=== PATIENT | male | born 2000 | race Caucasian/White ===

== ENCOUNTER 2021-05-08 16:35 | Emergency (ER) | payer OTHER ==
[2021-05-08 17:07] LABS: RAPID STREP SCREEN Negative (Negative)
--- NOTE | 2021-05-08 17:59 | ED Physician Documentation ---
PD HPI URI - Stated complaint Stated Complaint: SETH,SOA,FATIGUE - Chief complaint Chief Complaint: Heent - History obtained from History obtained from: Patient - History of Present Illness Pain level max: 0 Pain level now: 0 Associated symptoms: Dry cough. No: Fever, Chills Contributing factors: Sick contact Improves by: Rest Worsened by: Activity, Breathing Recently seen: Not recently seen - Additional information Additional information: Patient is a 20-year-old male who presents to the emergency department with dry cough, weakness and fatigue for the past 24 hours. He is active [employer] and has been around other people that are ill. He states that his command told him to come here to find out how long he was going to be sick for. Has had his covid vaccinations Review of Systems Constitutional: denies: Fever, Chills Nose: reports: Rhinorrhea / runny nose, Congestion Throat: reports: Sore throat Respiratory: reports: Cough (dry) GI: denies: Nausea, Vomiting, Diarrhea Skin: denies: Rash Musculoskeletal: denies: Neck pain, Back pain Neurologic: denies: Headache PD PAST MEDICAL HISTORY - Past Medical History Past Medical History: No Cardiovascular: None Respiratory: None Neuro: None Endocrine/Autoimmune: None GI: None : None HEENT: None Psych: None Musculoskeletal: None Derm: None - Past Surgical History Past Surgical History: No - Present Medications Home Medications: Ambulatory Orders Medication Instructions Recorded Confirmed No Known Home Medications 05/08/21 05/08/21 - Allergies Allergies/Adverse Reactions: Allergies Allergy/AdvReac Type Severity Reaction Status Date / Time No Known Drug Allergies Allergy Verified 05/08/21 16:45 - Social History Does the pt smoke?: No Smoking Status: Never smoker Does the pt drink ETOH?: No Does the pt have substance abuse?: No - Immunizations Immunizations are current?: Yes PD ED PE NORMAL - Vitals Vital signs reviewed: Yes - General General: Alert and oriented X 3, No acute distress - HEENT HEENT: PERRL, Ears normal, Moist mucous membranes, Pharynx benign - Neck Neck: Supple, no meningeal sign - Cardiac Cardiac: RRR, Strong equal pulses - Respiratory Respiratory: No respiratory distress, Clear bilaterally - Abdomen Abdomen: Soft, Non tender, Non distended - Derm Derm: Warm and dry, No rash - Neuro Neuro: Alert and oriented X 3 - Psych Psych: Normal mood, Normal affect Results - Vitals Vitals: Vital Signs - 24 hr 05/08/21 05/08/21 16:41 18:39 Temperature 37.1 C 36.6 C Heart Rate 104 H 87 Respiratory 16 18 Rate Blood Pressure 136/78 H 140/78 H O2 Saturation 97 100 Oxygen O2 Source Room air - Labs Labs: Laboratory Tests 05/08/21 16:49 Group A Strep Rapid Negative - Rads (name of study) Chest x-ray Radiology: Final report received, EMP read contemporaneously, See rad report (No acute abnormality) PD MEDICAL DECISION MAKING - ED course Complexity details: reviewed results, re-evaluated patient, considered differential, d/w patient ED course: 20-year-old male with what appears to be a viral upper respiratory infection. We will continue supportive care at home and have him follow-up with his doctor for further care. Patient counseled regarding signs and symptoms for which I believe and urgent re-evaluation would be necessary. Patient with good understanding of and agreement to plan and is comfortable going home at this time This document was made in part using voice recognition software. While efforts are made to proofread this document, sound alike and grammatical errors may occur. Departure - Departure Disposition: 01 Home, Self Care Clinical Impression: Viral URI Condition: Good Instructions: ED Viral Syndrome Follow-Up: COLBY Payne [Provider Group] - Within 1 week Comments: Follow-up with your doctor for further care. Go home and rest. Return if you worsen. Your x-ray does not show any acute abnormalities today. Forms: Activity restrictions Discharge Date/Time: 05/08/21 18:40
--- NOTE | 2021-05-08 18:17 | XRAY Report ---
PROCEDURE: Chest 2 View X-Ray INDICATIONS: cough TECHNIQUE: 2 view(s) of the chest. COMPARISON: None. FINDINGS: Surgical changes and devices: None. Lungs and pleura: No pleural effusions or pneumothorax. Lungs are clear. Mediastinum: Mediastinal contours are normal. Heart size is normal. Bones and chest wall: No suspicious bony abnormalities. Soft tissues appear unremarkable. IMPRESSION: No acute cardiopulmonary abnormality. Reviewed by: Leoncio Chino MD on 05/08/2021 6:15 PM PDT Approved by: Leoncio Chino MD on 05/08/2021 6:15 PM PDT Station ID: [id number]
[2021-05-08 18:39] VITALS: BP 140/78
== END 2021-05-08 18:40 | disposition home or self-care (01) ==
LOC: ED 16:35
DX: U07.1 COVID-19 (principal); J06.9 Acute upper respiratory infection, unspecified
CPT/HCPCS: 87070; 87430; 99284

== ENCOUNTER 2021-09-01 08:04 | Emergency (ER) | payer OTHER ==
[2021-09-01 08:15] VITALS: BP 170/80
--- NOTE | 2021-09-01 08:29 | ED Physician Documentation ---
PD HPI LOWER EXT INJURY - Stated complaint Stated Complaint: RT KNEE INJURY - Chief complaint Chief Complaint: Trauma Ext - History obtained from History obtained from: Family - History of Present Illness PD HPI LOW EXT INJURY LOCATION: Right, Knee Type of injury: Fall, Twist Where injury occurred: [place], [place] Timing - onset: Yesterday Timing - duration: Days (1) Timing - details: Still present, Intermittant Improved by: Rest, Immobilization Worsened by: Moving, Palpating Associated symptoms: Swelling. No: Weakness, Numbness, Tingling, Discolored Contributing factors: No: Anticoagulated Similar symptoms before: Has not had sx before Recently seen: Not recently seen - Additional information Additional information: Previous well 21-year-old male was playing flag football yesterday with his [employer] mates and he went to catch the ball when he came down he came down on his right knee. He felt his patella dislocate and now he has pain on the medial aspect of his right knee. He has pain with weightbearing. Review of Systems Constitutional: denies: Fever Ears: denies: Ear pain Nose: denies: Congestion Throat: denies: Sore throat Respiratory: denies: Cough GI: denies: Vomiting, Diarrhea Musculoskeletal: reports: Extremity pain, Joint pain, Pain with weight bearing. denies: Neck pain, Back pain Neurologic: denies: Generalized weakness, Focal weakness, Numbness PD PAST MEDICAL HISTORY - Past Medical History Cardiovascular: None Respiratory: None Neuro: None Endocrine/Autoimmune: None GI: None : None HEENT: None Psych: None Musculoskeletal: None Derm: None - Past Surgical History Past Surgical History: No - Present Medications Home Medications: Ambulatory Orders Medication Instructions Recorded Confirmed No Known Home Medications 05/08/21 09/01/21 - Allergies Allergies/Adverse Reactions: Allergies Allergy/AdvReac Type Severity Reaction Status Date / Time No Known Drug Allergies Allergy Verified 09/01/21 08:14 - Social History Does the pt smoke?: No Smoking Status: Never smoker Does the pt drink ETOH?: No Does the pt have substance abuse?: No - Immunizations Immunizations are current?: Yes PD ED PE NORMAL - Vitals Vital signs reviewed: Yes (hypertensive ) - General General: Alert and oriented X 3, No acute distress, Well developed/nourished - HEENT HEENT: Atraumatic, PERRL, EOMI - Respiratory Respiratory: No respiratory distress - Derm Derm: Normal color, Warm and dry, No rash - Extremities Extremities: No deformity, No edema, Other (Point tenderness to the medial joint line and the medial joint opens with valgus forces there is pain to the medial joint line with varus forces. Anterior cruciate mid and lateral collateral ligaments stable distal neurovascular intact full range of motion. 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 By history it sounds like he did dislocate his patella as well. An effusion is present on plain film but no fracture is observed and the patient is placed into a long-leg knee immobilizer. He is referred to orthopedics. Departure - Departure Disposition: 01 Home, Self Care Clinical Impression: Medial collateral ligament sprain of knee Qualifiers: Encounter type: initial encounter Laterality: right Qualified Code(s): S83.411A - Sprain of medial collateral ligament of right knee, initial encounter Condition: Stable Instructions: ED Sprain Knee Collateral Ligaments Follow-Up: WELLINGTON CROWLEY DO [Primary Care Provider] - Damon Cota MD [Provider Admit Priv/Credential] -
--- NOTE | 2021-09-01 09:13 | XRAY Report ---
PROCEDURE: Knee 4 View RT INDICATIONS: medial joint line pain after fall football TECHNIQUE: 4 views of the right knee(s) were acquired. COMPARISON: None. FINDINGS: Bones: No fractures or dislocations. No suspicious bony lesions. Soft tissues: Mild to moderate joint effusion. No suspicious soft tissue calcifications. IMPRESSION: Mild to moderate effusion. No visualized acute fracture or dislocation. However, occult injury cannot be excluded. Recommend short interval imaging follow-up in 7-10 days as clinically selena cated for additional evaluation. Reviewed by: Charleen Rangel MD on 09/01/2021 9:11 AM PDT Approved by: Charleen Rangel MD on 09/01/2021 9:11 AM PDT Station ID: [id number]
== END 2021-09-01 09:41 | disposition home or self-care (01) ==
LOC: ED 08:04
DX: S83.411A Sprain of medial collateral ligament of right knee, initial encounter (principal); W18.39XA Other fall on same level, initial encounter; Y93.62 Activity, american flag or touch football; Y92.830 Public park as the place of occurrence of the external cause
CPT/HCPCS: 99282; 99283

== ENCOUNTER 2024-02-24 08:01 | Day surgery (SDC) | payer OTHER ==
--- NOTE | 2024-02-24 08:14 | ED Physician Documentation ---
PD HPI ABD PAIN - Stated complaint Stated Complaint: ABD PX - Additional information Additional information: 23-year-old otherwise healthy male sent over from the walk-in clinic to evaluate for appendicitis. He had a little bit of anorexia and vague GI upset day crampy diffuse pain yesterday and then the developed localizing right lower quadrant pain overnight. Presented to the walk-in clinic for evaluation and they sent him here because of concern for appendicitis. No bowel movement in the past 24 hours. He tried some [id number] laxatives. Nauseous and vomiting. Positive anorexia. Negative surgical history otherwise healthy 23-year-old Review of Systems GI: reports: Abdominal Pain, Nausea, Vomiting PD PAST MEDICAL HISTORY - Past Medical History Cardiovascular: None Respiratory: None Neuro: None Endocrine/Autoimmune: None GI: None : None HEENT: None Psych: None Musculoskeletal: None Derm: None - Past Surgical History Past Surgical History: No - Present Medications Home Medications: Ambulatory Orders Medication Instructions Recorded Confirmed No Known Home Medications 05/08/21 02/24/24 - Allergies Allergies/Adverse Reactions: Allergies Allergy/AdvReac Type Severity Reaction Status Date / Time No Known Drug Allergies Allergy Verified 02/24/24 08:12 - Social History Does the pt smoke?: No Smoking Status: Never smoker Does the pt drink ETOH?: No Does the pt have substance abuse?: No - Immunizations Immunizations are current?: Yes PD ED PE NORMAL - Vitals Vital signs reviewed: Yes - General General: Alert and oriented X 3, No acute distress - Cardiac Cardiac: RRR, No murmur - Respiratory Respiratory: No respiratory distress - Abdomen Abdomen: Normal bowel sounds, Other (Right lower quadrant tenderness and guarding at McBurney's point.No hernias) Results - Vitals Vitals: Vital Signs - 24 hr 02/24/24 08:12 Temperature 37.3 C Heart Rate 106 H Respiratory 18 Rate Blood Pressure 163/88 H O2 Saturation 99 Oxygen O2 Source Room air - Labs Labs: Laboratory Tests 02/24/24 02/24/24 08:30 08:30 WBC 18.5 H RBC 5.95 Hgb 17.3 Hct 50.6 MCV 85.0 MCH 29.1 MCHC 34.2 RDW 11.9 L Plt Count 257 MPV 9.2 Neut # (Auto) 15.3 H Lymph # (Auto) 1.7 [place] # (Auto) 1.4 H Eos # (Auto) 0.0 Baso # (Auto) 0.0 Absolute Nucleated RBC 0.00 Nucleated RBC % 0.0 Sodium 136 Potassium 3.7 Chloride 100 L Carbon Dioxide 27 Anion Gap 9.0 BUN 8 Creatinine 0.9 Estimated GFR (MDRD) 104 Glucose 114 H Calcium 10.3 Total Bilirubin 1.4 H AST 18 ALT 28 Alkaline Phosphatase 50 Total Protein 7.6 Albumin 5.0 Globulin 2.6 Albumin/Globulin Ratio 1.9 - Rads (name of study) CT abd pelvis- Relevant Findings:: Final report received (acute appendicitis, apendicolith, no abscess), EMP independent interpretation of test (thick appendix) PD Medical Decision Making - ED course Complexity details: reviewed results, re-evaluated patient, considered differential (Appendicitis most likely. Will check CT scan and labs to evaluate other causes. Does not present like a kidney stone will check urine), d/w mergers and acquisitions consultant ED course: Gave IV fluids check labs he has a white count of 18,000. CT scan confirms cli nical suspicion for appendicitis. Discussed with Dr. Zeng from surgery she was here in the emergency department seeing the patient we will give IV Zosyn in anticipation of the OR. He will be going to same-day surgery for appendectomy. - Consults Consults: Discussed case with (Dr. Zeng- surgery. will see in ED, take to OR) Departure - Departure Disposition: ED Transfer to [facility] Clinical Impression: Appendicitis Forms: PCP List
[2024-02-24] MEDS: SODIUM CHLORIDE 0.9% 1,000 ML IV STA ×2 (08:34→11:26)
[2024-02-24 08:40] LABS: BASOPHILS % (AUTO) 0.2 %; EOSINOPHILS % (AUTO) 0.1 %; HCT - HEMATOCRIT 50.6 % (42.0-52.0); HGB - HEMOGLOBIN 17.3 g/dL (14.0-18.0); LYMPHOCYTES # (AUTO) 1.7 10^3/uL (1.5-3.5); LYMPHOCYTES % (AUTO) 9.3 %; MEAN CORPUSCULAR HEMOGLOBIN 29.1 pg (27.0-31.0); MEAN CORPUSCULAR HGB CONC 34.2 g/dL (32.0-36.0); MEAN PLATELET VOLUME 9.2 fL (7.4-11.4); MONOCYTES # (AUTO) 1.4 10^3/uL (0.0-1.0); MONOCYTES % (AUTO) 7.6 %; NEUTROPHILS # (AUTO) 15.3 10^3/uL (1.5-6.6); NEUTROPHILS % (AUTO) 82.4 %; PLT - PLATELET COUNT 257 10^3/uL (130-450); RED BLOOD COUNT 5.95 10^6/uL (4.70-6.10); RED CELL DISTRIBUTION WIDTH 11.9 % (12.0-15.0); WHITE BLOOD COUNT 18.5 x10^3/uL (4.8-10.8)
[2024-02-24] MEDS: HYDROmorphone 1 MG/ML CARPUJECT IVP STA (08:48)
[2024-02-24] MEDS: ONDANSETRON 4 MG/2 ML VIAL IVP STA (08:48)
[2024-02-24 08:56] LABS: ALBUMIN/GLOBULIN RATIO 1.9 (1.0-2.2); BILIRUBIN,TOTAL 1.4 mg/dL (0.2-1.0); CALCIUM 10.3 mg/dL (8.5-10.3); CREATININE 0.9 mg/dL (0.6-1.3); POTASSIUM 3.7 mmol/L (3.5-4.5); TOTAL PROTEIN 7.6 g/dL (6.4-8.9)
[2024-02-24] MEDS ORDERED: iohexoL-300 100 ML VIAL ONE (09:04)
[2024-02-24] MEDS: iohexoL-300 100 ML VIAL IVP ONE (09:23)
--- NOTE | 2024-02-24 10:37 | CT Report ---
PROCEDURE: Abdomen/Pelvis W INDICATIONS: RLQ pain CONTRAST: Omnipaque 300 100ml TECHNIQUE: After the administration of intravenous contrast, a CT scan of the abdomen and pelvis was performed. Images were recorded and evaluated at appropriate window settings. Reformats: coronal and sagittal. F or radiation dose reduction, the following was used: automated exposure control, adjustment of mA and /or kV according to patient size. COMPARISON: None FINDINGS: Image quality: Diagnostic Lower chest: Lung bases appear unremarkable. Liver: Unremarkable Gallbladder and biliary system: Unremarkable, nondilated Pancreas: No ductal dilation Spleen: Nonenlarged Adrenals: No discrete nodule Kidneys: No solid mass or hydronephrosis Vessels and lymph nodes: The main portal vein is patent. No abdominal aortic aneurysm. No pathologic lymph nodes by size criteria. Bowel and peritoneum: No evidence of small bowel obstruction. Markedly dilated appendix with moderate surrounding stranding. There is an obstructing appendicolith at the neck measuring 2.4 x 1.4 cm. No abscess. Body wall: Unremarkable Pelvis: Bladder is unremarkable. The prostate not well evaluated on this study Bones: No acute or suspicious osseous finding. IMPRESSION: Acute appendicitis. There is a 2.4 x 1.4 cm obstructing appendicolith at the neck. Moderate surroundi ng inflammation. No drainable abscess. Other findings as above (Images were made available for radiologist review at 10:20 AM.) Reviewed by: Juventino Hoang MD on 02/24/2024 10:36 AM PDT Approved by: Juventino Hoang MD on 02/24/2024 10:36 AM PDT Station ID: [id number]
[2024-02-24] MEDS: PIPERACILLIN/TAZOBACTAM 4.5 GM in SODIUM CHLORIDE 0.9% MINIBAG 100 ML IV STA (11:26)
--- NOTE | 2024-02-24 11:36 | HISTORY & PHYSICAL EXAMINATION ---
HPI - Admitted From Admitted from: ED - History Obtained From History obtained from: Patient Exam limitations: No limitations - History of Present Illness HPI Comment/Other: 23yoM, otherwise healthy, with onset of abdominal pain nearly 48hrs ago. Initially generalized and has migrated to [facility]. Associated with nausea and emesis yesterday, though was able to keep down gatorade and saltines overnight. Denies fever, denies dysuria, denies diarrhea. Tried OTC tums/pepto for perceived indigestion with no improvement. No history of similar abdominal pain in the past. PMH/PSH - Past Medical History Cardiovascular: positive: None Respiratory: positive: None Neuro: positive: None Endocrine/Autoimmune: positive: None GI: positive: None : positive: None HEENT: positive: None Psych: positive: None Musculoskeletal: positive: None Derm: positive: None MRSA Hx?: No - Past Surgical History Other past surgical history: No PSH Social & Family Hx - Living Situation Living Arrangement: At home Living Situation: Alone - Social History Does the pt smoke?: No Smoking Status: Former smoker (Quit 1 yr ago) Does the pt drink ETOH?: No Does the pt have substance abuse?: No - POLST Patient has POLST: No - Family History Family History Comment/Other: noncontributory Meds/Allgy - Home Medications Home Medications: Ambulatory Orders Medication Instructions Recorded Confirmed No Known Home Medications 05/08/21 02/24/24 - Allergies Allergies/Adverse Reactions: Allergies Allergy/AdvReac Type Severity Reaction Status Date / Time No Known Drug Allergies Allergy Verified 02/24/24 08:12 Review of Systems - Gastrointestinal Gastrointestinal: reports: Abdominal pain, Nausea, Vomiting Exam - Vital Signs Reviewed Vital Signs: Yes Vital Signs: Vital Signs x48h Temp Pulse Resp BP Pulse Ox 02/24/24 08:12 37.3 C 106 H 18 163/88 H 99 - Physical Exam General Appearance: positive: No acute distress Eyes Bilateral: positive: Normal inspection, PERRL ENT: positive: ENT inspection nml, Pharynx nml, No signs of dehydration Neck: positive: Nml inspection, Thyroid nml, No JVD, Trachea midline Respiratory: positive: Chest non-tender, No respiratory distress, Breath sounds nml Cardiovascular: positive: Regular rate & rhythm, No murmur, No gallop Peripheral Pulses: positive: 2+ Abdomen: positive: Tenderness (Generalized ttp, worst in RLQ with focal rebound, positive rosvings), Rebound. negative: Guarding Skin: positive: Color nml, No rash, Warm, Dry Extremities: positive: Non-tender, Full ROM, Nml appearance Neurologic/Psychiatric: positive: Oriented x3, Mood/affect nml Results - Lab Results Lab results reviewed: Yes Fish Bones: 02/24/24 08:30 02/24/24 08:30 Other Lab Results: Lab Results x24hrs 02/24/24 02/24/24 Range/Units 08:30 08:30 WBC 18.5 H (4.8-10.8) x10^3/uL RBC 5.95 (4.70-6.10) 10^6/uL Hgb 17.3 (14.0-18.0) g/dL Hct 50.6 (42.0-52.0) % MCV 85.0 (80.0-94.0) fL MCH 29.1 (27.0-31.0) pg MCHC 34.2 (32.0-36.0) g/dL RDW 11.9 L (12.0-15.0) % Plt Count 257 (130-450) 10^3/uL MPV 9.2 (7.4-11.4) fL Neut # (Auto) 15.3 H (1.5-6.6) 10^3/uL Lymph # (Auto) 1.7 (1.5-3.5) 10^3/uL [place] # (Auto) 1.4 H (0.0-1.0) 10^3/uL Eos # (Auto) 0.0 (0.0-0.7) 10^3/uL Baso # (Auto) 0.0 (0.0-0.1) 10^3/uL Absolute Nucleated RBC 0.00 x10^3/uL Nucleated RBC % 0.0 /100WBC Sodium 136 (135-145) mmol/L Potassium 3.7 (3.5-4.5) mmol/L Chloride 100 L (101-111) mmol/L Carbon Dioxide 27 (21-32) mmol/L Anion Gap 9.0 (6-13) BUN 8 (6-20) mg/dL Creatinine 0.9 (0.6-1.3) mg/dL Estimated GFR (MDRD) 104 (>89) Glucose 114 H (74-104) mg/dL Calcium 10.3 (8.5-10.3) mg/dL Total Bilirubin 1.4 H (0.2-1.0) mg/dL AST 18 (10-42) IU/L ALT 28 (10-60) IU/L Alkaline Phosphatase 50 (42-121) IU/L Total Protein 7.6 (6.4-8.9) g/dL Albumin 5.0 (3.2-5.5) g/dL Globulin 2.6 (2.1-4.2) g/dL Albumin/Globulin Ratio 1.9 (1.0-2.2) - Diagnostic Imaging Results Diagnostic Imaging Results: positive: Final report reviewed Diagnostic Imaging Results Comments: CT abd/pel with IV contrast - 2cm appendicolith with significantly dilated appendix (nearly 2cm) with surrounding inflammation c/w acute appendicitis. Trace free fluid in the pelvis, no abscess Sepsis Event Note (H) - Evaluation Confirmed Source and Organism (if known) of Sepsis: appendicitis - Sepsis Criteria Sepsis Criteria: Recorded Heart Rate greater than 90 bpm, WBC count greater than 12,000 or less than 4000 Impression/Plan - Problem List Problem List: Acute appendicitis 23yoM presenting with history and exam c/w acute appendicitis. Patient is hypertensive to 160s with low grade tachycardia to 106, afebrile. Elevated WBC to [address] demonstrates significantly dilated appendix with large (2cm) appendicolith, surrounding inflammation but no e/o giovani perforation or abscess. Discussed nature of disease with patient, management options of surgery vs antibiotics, and that I do not feel antibiotics alone are a reasonable option given the size of lith and appendix. Discussed risks of laparoscopic appendectomy to include pain, bleeding, infection, bowel resection, open surgery, need for further procedures. He understands and agrees to proceed with surgery. - zosyn given in ED - 1L crystalloid given in ED - to OR for laparoscopic appendectomy - lives alone, anticipate overnight observation given patient lives alone (unless makes arrangement with friend to stay over with him) Echo Zeng DO FACS General Surgery
[2024-02-24] MEDS ORDERED: LIDOCAINE 1%-EPI 1:100000 20 ML MDV ONE (12:05)
[2024-02-24] MEDS ORDERED: BUPIVACAINE 0.25% PF 30 ML VIAL ONE (12:05)
[2024-02-24] MEDS ORDERED: ONDANSETRON 4 MG/2 ML VIAL IVP PRN ×2 (12:06→15:02)
[2024-02-24] MEDS ORDERED: NALOXONE 0.4 MG/ML VIAL IVP PRN (12:06)
[2024-02-24] MEDS ORDERED: ATROPINE ABBOJECT 1 MG/10 ML SYRINGE IVP PRN (12:06)
[2024-02-24] MEDS ORDERED: MORPHINE 2 MG/ML CARPUJECT IVP PRN (12:06)
[2024-02-24] MEDS ORDERED: ePHEDrine 50 MG/ML VIAL IVP PRN (12:06)
[2024-02-24] MEDS ORDERED: METOCLOPRAMIDE 10 MG/2 ML VIAL IVP PRN (12:06)
[2024-02-24] MEDS ORDERED: fentaNYL 100 MCG/2 ML VIAL IVP PRN (12:06)
[2024-02-24] MEDS ORDERED: HYDROmorphone 0.5 MG/0.5 ML SYRINGE IVP PRN (12:06)
--- NOTE | 2024-02-24 12:06 | ANESTHESIA ---
Pre-Anesthesia VS, & Labs - Diagnosis acute appendicitis - Procedure laparoscopic appendectomy Vital Signs: Temp Pulse Resp BP Pulse Ox O2 Flow Rate 37.3 C 76 16 142/84 H 98 02/24/24 08:12 02/24/24 10:16 02/24/24 10:16 02/24/24 10:16 02/24/24 10:16 Height: 6 ft 4 in Weight (kg): 108.862 kg Body Mass Index: 29.2 BMI Classification: Overweight - NPO >8 hours (n/v at 0600, dry heaves, none since) - Lab Results Current Lab Results: Laboratory Tests 02/24/24 08:30: Sodium 136, Potassium 3.7, Chloride 100 L, Carbon Dioxide 27, Anion Gap 9.0, BUN 8, Creatinine 0.9, Estimated GFR (MDRD) 104, Glucose 114 H, Calcium 10.3, Total Bilirubin 1.4 H, AST 18, ALT 28, Alkaline Phosphatase 50, Total Protein 7.6, Albumin 5.0, Globulin 2.6, Albumin/Globulin Ratio 1.9 02/24/24 08:30: WBC 18.5 H, RBC 5.95, Hgb 17.3, Hct 50.6, MCV 85.0, MCH 29.1, MCHC 34.2, RDW 11.9 L, Plt Count 257, MPV 9.2, Neut # (Auto) 15.3 H, Lymph # (Auto) 1.7, [place] # (Auto) 1.4 H, Eos # (Auto) 0.0, Baso # (Auto) 0.0, Absolute Nucleated RBC 0.00, Nucleated RBC % 0.0 Fish Bones: 02/24/24 08:30 02/24/24 08:30 Home Medications and Allergies No Known Home Medications 05/08/21 Allergies/Adverse Reactions: Allergies Allergy/AdvReac Type Severity Reaction Status Date / Time No Known Drug Allergies Allergy Verified 02/24/24 08:12 Anes History & Medical History - Anesthetic History Anesthesia Complications: reports: No previous complications Family history of Anesthesia Complications: Denies Family history of Malignant Hyperthermia: Denies - Medical History Cardiovascular: reports: None Pulmonary: reports: None Gastrointestinal: reports: None Urinary: reports: None Neuro: reports: None Musculoskeletal: reports: None Endocrine/Autoimmune: reports: None Blood Disorders: reports: None Skin: reports: None Smoking Status: Former smoker (Quit 1 yr ago) - Surgical History Other Past Surgical History: No PSH Exam General: Alert, Oriented x3, Cooperative Dental: WNL Mouth Openin Fingerbreadth Neck Mobility: Normal Mallampati classification: II Thyromental Distance: 4-6 cm Respiratory: Lungs clear, Normal breath sounds, No respiratory distress Cardiovascular: Regular rate Neurological: Normal speech Mental/Cognitive Status: Alert/Oriented X3, Normal for patient Cognitive Status: Within normal limits Plan Anesthesia Type: General Consent for Procedure(s) Verified and Reviewed: Yes Code Status: Attempt Resuscitation ASA classification: 2-Mild systemic disease Is this case an emergency?: Yes
[2024-02-24] MEDS: BUPIVACAINE 0.25% PF 30 ML VIAL SUBQ ONE ×2 (12:36)
[2024-02-24] MEDS: LIDOCAINE 1%-EPI 1:100000 20 ML MDV SUBQ ONE ×2 (12:36)
[2024-02-24] MEDS ORDERED: LIDOCAINE-MPF 2% 5 ML VIAL ONE (12:42)
[2024-02-24] MEDS ORDERED: KETOROLAC 30 MG/ML VIAL ONE (12:42)
[2024-02-24] MEDS ORDERED: ONDANSETRON 4 MG/2 ML VIAL ONE (12:42)
[2024-02-24] MEDS ORDERED: PROPOFOL 200 MG/20 ML VIAL IVP ONE (12:42)
[2024-02-24] MEDS ORDERED: DEXAMETHASONE 4 MG/ML VIAL ONE (12:42)
[2024-02-24] MEDS ORDERED: ROCURONIUM 50 MG/5 ML VIAL ONE (12:42)
[2024-02-24] MEDS ORDERED: MIDAZOLAM 2 MG/2 ML VIAL ONE (12:43)
[2024-02-24] MEDS ORDERED: SUGAMMADEX 200 MG/2 ML VIAL IVP ONE (12:43)
[2024-02-24] MEDS ORDERED: fentaNYL 100 MCG/2 ML VIAL ONE ×2 (12:43→13:45)
[2024-02-24] MEDS ORDERED: LACTATED RINGERS 1,000 ML IV SCH (13:00)
[2024-02-24] MEDS ORDERED: PHENYLEPHRINE HCL 0.5 MG/5 ML AMPULE ONE (13:37)
[2024-02-24] MEDS ORDERED: ACETAMINOPHEN 1,000 MG/100 ML 1,000 MG/100 ML BAG IV ONE (14:06)
[2024-02-24] MEDS: LACTATED RINGERS 1,000 ML IV ONE (14:56)
--- NOTE | 2024-02-24 14:57 | ANESTHESIA POST OP EVALUATION ---
Anesthesia Post Eval - Post Anesthesia Eval Vitals: Last Vital Signs Temp 36.8 C 02/24/24 12:00 Pulse 88 02/24/24 12:00 Resp 16 02/24/24 12:00 BP 140/80 H 02/24/24 12:00 Pulse Ox 98 02/24/24 12:00 O2 Flow Rate CV Function Including HR & BP: Stable Pain Control: Satisfactory Nausea & Vomiting: Negative Mental Status: Baseline Respiratory Status: Airway Patent Hydration Status: Satisfactory Anesthesia Complications: None
--- NOTE | 2024-02-24 14:58 | OPERATIVE REPORT ---
Operative Report - General Procedure Date: 02/24/24 Planned Procedure: laparoscopic appendectomy Pre-Op Diagnosis: acute appendicitis Procedure Performed: laparoscopic appendectomy Post Op Diagnosis: acute suppurative appendicitis - Procedure Note Primary Surgeon: Echo Zeng DO Anesthesia Provider: Madison Webster CRNA, Tea Nina CRNA Anesthesia Technique: General ET tube Pathology: appendix IV Fluids (mL): 1,500 Estimated Blood Loss (mL): 10 Urine Output (mL): 1,200 Indications: 23yoM with 48hrs of abdominal and H&P, labs and imaging consistent with acute nonperforated appendicitis. Findings: Acute suppurative appendicitis, purulent fluid in the RLQ and pelvis, necrotic appearing appendix with large fecalith at base Complications: none - Other Other Information/Narrative: The patient was brought to the operating room with universal protocol observed throughout. He was placed supine on the operating room table with the left arm tucked. A Escobedo was placed. General anesthesia with endotracheal tube was induced by the anesthesia service. A timeout was performed with all members of the team being in agreement. Local anesthetic of 1% lidocaine with epinephrine mixed with Marcaine plain was injected into the infraumbilical skin. A transverse skin incision was made sharply. Blunt dissection down to the level of the fascia was performed. The umbilical stalk was elevated and the fascia was incised sharply in a vertical orientation and the peritoneal cavity was entered bluntly with a Tete clamp. A 12 mm balloon trocar was placed. The abdomen was insufflated with CO2 gas to a pressure of 15 mmHg which the patient tolerated well. The laparoscope was inserted and visual inspection revealed no evidence of injury upon entry. Two additional 5mm trocars were placed under direct visualization: one in the left lower quadrant, one in the suprapubic position. Graspers were introduced into the abdomen. The appendix was suppurative and necrotic throughout the length with a large fecalith at the base, and adhesions to the abdominal side wall. Adhesions were taken down with blunt dissection. The appendix was elevated and a window through the mesentery at the base of the appendix was made bluntly, through which the appendiceal base was divided with a 45 mm blue load staple line. The mesoappendix was divided with a 45mm while load staple line x2. The appendix was placed into an Endo Catch bag and extracted through the umbilical port. The staple line was inspected, two small hemaclips were placed on the mesenteric staple line to gain hemostasis. Purulent fluid was suctioned from the right lower quadrant and pelvis. The trocars were removed under direct visualization. The umbilical fascia was closed with an 0 Vicryl [id number] suture. The umbilical wound was irrigated with clean normal saline. Hemostasis in the wound was achieved with Bovie electrocautery and all skin incisions were closed with subcuticular 4-0 Monocryl suture. A dressing of Steri-Strips gauze and Tegaderm was applied. The escobedo was removed and the patient was extubated and awoken from general anesthesia. There were no complications. All sponge needle counts were correct. The patient was transferred to the PACU in stable condition. Echo Zeng DO, FACS General Surgeon
[2024-02-24] MEDS ORDERED: oxyCODONE 5 MG TABLET PO PRN (15:02)
[2024-02-24] MEDS: ACETAMINOPHEN 500 MG TABLET PO SCH (21:03)
[2024-02-24] MEDS: IBUPROFEN 800 MG TABLET PO SCH (21:04)
[2024-02-25 08:00] VITALS: BP 143/87; O2SAT 96
--- NOTE | 2024-02-25 08:48 | DISCHARGE SUMMARY ---
"Discharge Summary Admit Date: 02/24/24 Discharge Date: 02/25/24 Discharging Provider: Echo Zeng DO Code Status: Attempt Resuscitation Condition at Discharge: Good Discharge Disposition: 01 Home, Self Care - DIAGNOSES Admission Diagnoses: Acute appendicitis Discharge Diagnoses with Status of Each Condition: Acute suppurative appendicitis - resolved - CONSULTS | PROCEDURES Procedures: laparoscopic appendectomy - HOSPITAL COURSE Hospital Course: The patient was admitted with acute appendicitis and taken to the operating room for an uncomplicated laparoscopic appendectomy. Intraoperatively he was found to have acute suppurative appendicitis with purulent fluid in the right lower quadrant and pelvis. He was observed overnight and remained HD normal, afebrile, he was tolerating a regular diet, ambulating and voiding at baseline. His pain was controlled with tylenol and motrin. He was discharged to home in good condition. - ALLERGIES Allergies/Adverse Reactions: Allergies Allergy/AdvReac Type Severity Reaction Status Date / Time No Known Drug Allergies Allergy Verified 02/24/24 08:12 - PHYSICAL EXAM AT DISCHARGE General Appearance: positive: No acute distress Eyes Bilateral: positive: Normal inspection ENT: positive: ENT inspection nml Neck: positive: Nml inspection Respiratory: positive: Chest non-tender, Breath sounds nml Cardiovascular: positive: Regular rate & rhythm Peripheral Pulses: positive: 2+ Abdomen: positive: No distention, Tenderness (appropriate periincisional ttp, no RLQ ttp). negative: Guarding Skin: positive: Color nml Extremities: positive: Non-tender, Full ROM Neurologic/Psychiatric: positive: Oriented x3, Mood/affect nml - LABS Result Diagrams: 02/24/24 08:30 02/24/24 08:30 - DIAGNOSTIC IMAGING Diagnostic Imaging Results: Final report reviewed - SEPSIS Current Stage of Sepsis: Resolved Possible source of Sepsis: GI tract/intra-abdominal Confirmed Source and Organism (if known) of Sepsis: appendix Sepsis Criteria: Recorded Heart Rate greater than 90 bpm, WBC count greater than 12,000 or less than 4000 - FOLLOW UP Follow Up: General Surgery in 2 weeks - TIME SPENT Time Spent in Discharge (Minutes): 30"
== END 2024-02-25 09:10 | disposition home or self-care (01) ==
LOC: ED 08:01 → SDS 11:20 → MS2 14:51 → SDS 02-25 09:10
PROVIDERS: ATTEND Surgery
PROC: 0DTJ4ZZ Resection of Appendix, Percutaneous Endoscopic Approach (ICD-10-PCS; principal; 2024-02-24 13:00)
DX: K35.80 Unspecified acute appendicitis (principal); Z87.891 Personal history of nicotine dependence
CPT/HCPCS: 36415; 44970; 74177; 80053; 85025; 96365; 96375; 99285; A9270; J0131; J1170; J2372; J7120; Q9967